=== PATIENT | male | born 1995 | race Caucasian/White ===

== ENCOUNTER 2016-06-05 13:24 | Emergency (ER) | payer OTHER ==
[~2016-06-05] VITALS: Ht 180.3 cm; Wt 63.5 kg
--- NOTE | 2016-06-05 15:07 | ED GENERAL ADULT ---
History of Present Illness General Chief Complaint: General Adult Stated Complaint: "FLU LIKE SYMPTOMS" X 3 DAYS Source: patient, family Exam Limitations: no limitations Vital Signs & Intake/Output Vital Signs & Intake/Output Vital Signs Date Time Temp Pulse Resp B/P Pulse O2 O2 Flow FiO2 Ox Delivery Rate 06/05 194 100.6 80 16 133/60 98 Room Air 06/05 1756 100.5 90 18 124/59 99 Room Air 06/05 1550 Room Air Room Air 06/05 1408 100.6 101 18 115/73 97 Room Air Allergies Coded Allergies: No Known Allergies (06/05/16) Reconcile Medications Cefdinir 300 MG CAPSULE 1 CAP PO BID ear infection (Reported) Ketorolac Tromethamine 10 MG TABLET 1 TAB PO TID PRN pain received IV toradol in the ED Ondansetron (Zofran Odt) 4 MG TAB.RAPDIS 1 TAB SL TID PRN nausea Triage Note: RECEIVED 20 YO MALE C/O "FLU LIKE SYMPTOMS X 3 DAYS". PT REPORTS FEVER, CHILLS, BODY ACHES AND PAIN, MILD RIGHT LOWER QUADRENT ABDOMINAL PAIN X ONE DAY. Triage Nurses Notes Reviewed? yes HPI: Patient is a 20-year-old male presents complaining of flulike symptoms 3 days and right lower abdominal pain times one day. Cough, fevers, myalgias onset 3 days ago. Temperature up to 101F. Patient has been taking ibuprofen with mild improvement. Right lower quadrant aching pain 1 day. Decreased appetite. Symptoms are currently moderate. Positive sick contacts. Last bowel movement was this afternoon prior to arrival. Patient denies vomiting, urinary symptoms. Patient is currently on Augmentin for right otitis media that was diagnosed approximately one week ago. (DARRICK GLEASON) Past History Travel History Traveled to [place] past 21 day No Medical History Any Pertinent Medical History? none Neurological: NONE EENT: NONE Cardiovascular: NONE Respiratory: NONE Gastrointestinal: NONE Hepatic: NONE Renal: NONE Musculoskeletal: NONE Psychiatric: NONE Endocrine: NONE Blood Disorders: NONE Cancer(s): NONE Surgical History Surgical History: non-contributory Psychosocial History What is your primary language French Tobacco Use: Current Daily Use Daily Tobacco Use Amount/Type: => 5 Cigarettes daily Illicit Drug Use: denies illicit drug use Family History Hx Contributory? No (DARRICK GLEASON) Review of Systems Review of Systems Constitutional: Reports: chills, fever, malaise. EENTM: Reports: nasal congestion. Respiratory: Reports: cough. Denies: short of breath. Cardiovascular: Denies: chest pain. GI: Reports: see HPI. Genitourinary: Reports: no symptoms. Musculoskeletal: Reports: no symptoms. Skin: Reports: no symptoms. Neurological/Psychological: Reports: headache. Hematologic/Endocrine: Reports: no symptoms. Immunologic/Allergic: Reports: no symptoms. (DARRICK GLEASON) Physical Exam Physical Exam General Appearance: well developed/nourished, alert, awake Head: atraumatic, normal appearance Eyes: Bilateral: normal appearance, PERRL, EOMI. Ears, Nose, Throat: normal pharynx, hearing grossly normal, moderate cerumen right external auditory canal. Normal tympanic membranes bilaterally. No pharyngeal erythema. Neck: normal inspection, supple, full range of motion Respiratory: normal breath sounds, chest non-tender, no respiratory distress, lungs clear Cardiovascular: regular rate/rhythm Gastrointestinal: normal bowel sounds, soft, right lower quadrant tenderness over the area of McBurney's point. Negative psoas or obturator sign. Back: normal inspection, normal range of motion, no vertebral tenderness, no CVA tenderness Extremities: normal inspection, normal capillary refill, normal range of motion, no edema Neurologic/Psych: no motor/sensory deficits, awake, alert, oriented x 3, normal gait, normal mood/affect Skin: intact, normal color, warm/dry Lymphatic: no anterior cervical choco Core Measures ACS in differential dx? No CVA/TIA Diagnosis: No Severe Sepsis Present: No Septic Shock Present: No (DARRICK GLEASON) Progress Differential Diagnoses I considered the following diagnoses in my evaluation of the patient: Gastroenteritis, influenza, infectious mononucleosis, appendicitis, inflammatory bowel disease Plan of Care: Orders Procedure Date/time Status Add-on Test (ER Only) 06/05 1826 Active MONOSPOT TEST 06/05 1540 Complete RAPID VIRAL INFLUENZA A 06/05 1507 Complete URINALYSIS 06/05 1507 Complete COMPREHENSIVE METABOLIC PANEL 06/05 1507 Complete CBC WITHOUT DIFFERENTIAL 06/05 1507 Complete Laboratory Tests 06/05/16 1816: Urine Color YEL, Urine Clarity CLEAR, Urine pH 6.5, Ur Specific [place] <= 1.005 , Urine Protein NEG, Urine Ketones NEG, Urine Nitrite NEG, Urine Bilirubin NEG, Urine Urobilinogen 0.2, Ur Leukocyte Esterase NEG, Ur Microscopic SEDIMENT EXAMINED, Urine RBC RARE, Ur Epithelial Cells RARE, Urine Hemoglobin TRACE- INTACT H, Urine Glucose NEG 06/05/16 1540: Anion Gap 11, Estimated GFR > 60, BUN/Creatinine Ratio 17.8, Glucose 103 H, Calcium 8.7, Total Bilirubin 0.5, AST 13 L, ALT 25, Alkaline Phosphatase 65, Total Protein 6.8, Albumin 3.9, Globulin 2.9, Albumin/Globulin Ratio 1.3, CBC w Diff NO MAN DIFF REQ, RBC 4.51 L, MCV 87.5, MCH 29.1, RDW 12.6, MPV 7.4, Gran % 83.6 H, Lymphocytes % 8.5 L, Monocytes % 6.8, Eosinophils % 0.8, Basophils % 0.3, Absolute Granulocytes 5.6, Absolute Lymphocytes 0.6 L, Absolute Monocytes 0.5, Absolute Eosinophils 0.1, Absolute Basophils 0, PUBS MCHC 33.3, Infectious [place] Titer NEGATIVE Microbiology 06/05 1532 NASOPHARYN: Influenza Virus A & B Rapid Smear - COMP 06/05/2016 5:00:25 PM: Patient reports eye itching and redness after receiving the IV contrast. Mild erythema and swelling left side of the nose. No tongue swelling, throat swelling, dyspnea, wheezing. Benadryl ordered. 06/05/2016 6:10:03 PM: results discussed with patient. Patient reports abdominal pain is mild currently. Awaiting call back from Dr. Javier. 06/05/2016 6:27:06 PM: Discussed with Dr. Javier: will review Patient evaluated by Dr. Javier: see consultation note. (ELOISA SUTHERLAND,DARRICK) Diagnostic Imaging: Viewed by Me: CT Scan. Discussed w/RAD: CT Scan. Radiology Impression: PATIENT: LOLA XIAO PRESENT AGE: 20 PATIENT ACCOUNT NO: [id number] : 95 LOCATION: [facility] ORDERING PHYSICIAN: DARRICK SUTHERLAND SERVICE DATE: 06/05/16-1186 EXAM TYPE: CAT - CT ABD & PELVIS W IV CONTRAST EXAMINATION: CT ABDOMEN AND PELVIS WITH CONTRAST CLINICAL INFORMATION: Right lower quadrant pain and tenderness, fever COMPARISON : None TECHNIQUE: Multidetector volumetric imaging was performed of the abdomen and pelvis before and after the IV administration of 94 mL of Optiray 320 intravenous contrast. Sagittal and coronal reformatted images were obtained on the technologist's workstation. DLP: 277.2 mGy-cm FINDINGS: LUNG BASES: The visualized lung bases are unremarkable. LIVER, GALLBLADDER, AND BILIARY TREE: The liver is normal in size, shape, and attenuation. No focal hepatic lesion or biliary ductal dilatation is present. The gallbladder is unremarkable with no evidence of radiopaque gallstones, gallbladder wall thickening, or obvious pericholecystic inflammatory changes. PANCREAS: Unremarkable. SPLEEN: The spleen is top normal in size measuring up to 12.8 cm. ADRENAL GLANDS: Unremarkable. KIDNEYS AND URETERS: The kidneys are normal in size, shape, and attenuation. No hydronephrosis, hydroureter, or calculi seen. No perinephric stranding. BLADDER: Unremarkable. GASTROINTESTINAL TRACT: The appendix is fluid-filled with mild hyperenhancement of the wall. The overall caliber is within normal range measuring 0.5-0.6 cm (image 38, series 602). There is free fluid within the pelvis. There are multiple loops of fluid-filled small bowel within the pelvis and mid to lower abdomen. Most of the free fluid surrounds the proximal sigmoid colon. There is abnormal enhancement of the wall of the proximal sigmoid colon. There is marked narrowing of the caliber of the sigmoid colon at one point within the mid deep pelvis (image 68, series 602). Immediately proximal to this point there is significant fecal dilatation of stool. There is no dilatation of the colon proximal to this point. ABDOMINAL WALL: No significant hernia is appreciated. LYMPH NODES: Normal. VASCULAR: Unremarkable. PELVIC VISCERA: Prostate and seminal vesicles are unremarkable. OSSEOUS STRUCTURES: Unremarkable. IMPRESSION: 1. Abnormal free fluid deep within the pelvis. Abnormal loop of proximal sigmoid colon which is markedly narrowed and may represent a single transition point. The bowel wall at this level demonstrates hyperenhancement. No high-grade obstruction demonstrated. Surgical consultation is recommended. 2. Equivocal appendix. The appendix is fluid-filled and demonstrates mild hyperenhancement on the current study but is not significantly dilated. 3. Borderline spleen. DICTATED BY: ROMMEL LOUISE MD DATE/TIME DICTATED: 06/05/161735 REHABILITATION PHYSICIAN:LAURA DATE/TIME TRANSCRIBED:04/09/17 / 1736 CONFIDENTIAL, DO NOT COPY WITHOUT APPROPRIATE AUTHORIZATION. <Electronically signed in Other Vendor System> SIGNED BY: ROMMEL LOUISE MD 06/05/16 1754 Initial ED EKG: none (DARRICK GLEASON) Departure Departure Time of Disposition: 1922 Disposition: HOME OR SELF CARE Condition: Stable Clinical Impression Primary Impression: Viral syndrome Referrals: MIRNA RIZVI,ANICETO Buenrostro (PCP/Family) Additional Instructions: Follow up with your primary doctor this week for further evaluation. Call in the morning for appointment. Return to the ER if unable to stay hydrated, pain increasing in the right lower abdomen or worsening of symptoms. Departure Forms: Customer Survey General Discharge Information Prescriptions: Current Visit Scripts Ketorolac Tromethamine 1 TAB PO TID PRN pain #12 TAB received IV toradol in the ED Ondansetron (Zofran Odt) 1 TAB SL TID PRN nausea #10 TAB (DARRICK GLEASON) PA/COOKIE BREAKER Co-Sign Statement Statement: ED Attending supervision documentation- [] I saw and evaluated the patient. I have also reviewed all the pertinent lab results and diagnostic results. I agree with the findings and the plan of care as documented in the PA's/COOKIE BREAKER's documentation. [x] I have reviewed the ED Record and agree with the PA's/COOKIE BREAKER's documentation. [] Additions or exceptions (if any) to the PAs/COOKIE BREAKER's note and plan are summarized below: [] (RAI RIZVI,MILDRED Espinosa) Critical Care Note Critical Care Note Critical Care Time: non-applicable (DARRICK GLEASON)
[2016-06-05 15:50] LABS: ABSOLUTE BASOPHIL COUNT 0 /CUMM (0.0-0.2); ABSOLUTE EOSINOPHIL COUNT 0.1 /CUMM (0.0-0.7); ABSOLUTE GRANULOCYTE CT 5.6 /CUMM (1.4-6.5); ABSOLUTE LYMPH COUNT 0.6 /CUMM (1.2-3.4); ABSOLUTE MONOCYTE COUNT 0.5 /CUMM (0.10-0.60); BASOPHIL % 0.3 % (0.0-2.0); EOSINOPHIL % 0.8 % (0-5); GRANULOCYTE % 83.6 % (42.2-75.2); HEMATOCRIT 39.5 % (42-52); MEAN CORPUSCULAR HGB 29.1 PG (27.0-31.0); MEAN CORPUSCULAR HGB CONC 33.3 G/DL (33.0-37.0); MEAN CORPUSCULAR VOLUME 87.5 FL (80.0-94.0); MEAN PLATELET VOLUME 7.4 FL (7.4-10.4); PLATELET COUNT 220 /CUMM (130-400); RBC DISTRIBUTION WIDTH 12.6 % (11.5-14.5); RED BLOOD CELL CT 4.51 /CUMM (4.70-6.10)
[2016-06-05] MEDS ORDERED: CEFDINIR300 M1 PO (15:50)
[2016-06-05 16:19] LABS: WHITE BLOOD CELL COUNT 6.7 /CUMM (4.8-10.8)
--- NOTE | 2016-06-05 17:52 | CT SCAN REPORT ---
EXAMINATION: CT ABDOMEN AND PELVIS WITH CONTRAST CLINICAL INFORMATION: Right lower quadrant pain and tenderness, fever COMPARISON: None TECHNIQUE: Multidetector volumetric imaging was performed of the abdomen and pelvis before and after the IV administration of 94 mL of Optiray 320 intravenous contrast. Sagittal and coronal reformatted images were obtained on the technologist's workstation. DLP: 277.2 mGy-cm FINDINGS: LUNG BASES: The visualized lung bases are unremarkable. LIVER, GALLBLADDER, AND BILIARY TREE: The liver is normal in size, shape, and attenuation. No focal hepatic lesion or biliary ductal dilatation is present. The gallbladder is unremarkable with no evidence of radiopaque gallstones, gallbladder wall thickening, or obvious pericholecystic inflammatory changes. PANCREAS: Unremarkable. SPLEEN: The spleen is top normal in size measuring up to 12.8 cm. ADRENAL GLANDS: Unremarkable. KIDNEYS AND URETERS: The kidneys are normal in size, shape, and attenuation. No hydronephrosis, hydroureter, or calculi seen. No perinephric stranding. BLADDER: Unremarkable. GASTROINTESTINAL TRACT: The appendix is fluid-filled with mild hyperenhancement of the wall. The overall caliber is within normal range measuring 0.5-0.6 cm (image 38, series 602). There is free fluid within the pelvis. There are multiple loops of fluid-filled small bowel within the pelvis and mid to lower abdomen. Most of the free fluid surrounds the proximal sigmoid colon. There is abnormal enhancement of the wall of the proximal sigmoid colon. There is marked narrowing of the caliber of the sigmoid colon at one point within the mid deep pelvis (image 68, series 602). Immediately proximal to this point there is significant fecal dilatation of stool. There is no dilatation of the colon proximal to this point. ABDOMINAL WALL: No significant hernia is appreciated. LYMPH NODES: Normal. VASCULAR: Unremarkable. PELVIC VISCERA: Prostate and seminal vesicles are unremarkable. OSSEOUS STRUCTURES: Unremarkable. IMPRESSION: 1. Abnormal free fluid deep within the pelvis. Abnormal loop of proximal sigmoid colon which is markedly narrowed and may represent a single transition point. The bowel wall at this level demonstrates hyperenhancement. No high-grade obstruction demonstrated. Surgical consultation is recommended. 2. Equivocal appendix. The appendix is fluid-filled and demonstrates mild hyperenhancement on the current study but is not significantly dilated. 3. Borderline spleen.
[2016-06-05] MEDS ORDERED: ZOFRAN ODT4 M1 SL (19:31)
[2016-06-05] MEDS ORDERED: KETOROLAC TROME10 M1 PO (19:31)
--- NOTE | 2016-06-05 19:33 | Cons- General Surgery ---
General Information and HPI Consulting Request Date of Consult: 06/05/16 Requested By: KOKO dong Reason for Consult: abdominal pain History of Present Illness: Patient is a 20-year-old male who presents to the emergency room for evaluation of abdominal pain. He has had body aches, headaches, chills and sweats for the past 3 days. There is anorexia without vomiting. There is diarrhea. He noted right lower quadrant abdominal pain today and came to the emergency room for evaluation. He states he had fevers at home up to 101 Fahrenheit. No similar episodes of pain. He does state that his girlfriend currently is recovering from the flu. Allergies/Medications Allergies: Coded Allergies: No Known Allergies (06/05/16) Home Med List: Cefdinir 300 MG CAPSULE 1 CAP PO BID ear infection (Reported) Ketorolac Tromethamine 10 MG TABLET 1 TAB PO TID PRN pain received IV toradol in the ED Ondansetron (Zofran Odt) 4 MG TAB.RAPDIS 1 TAB SL TID PRN nausea Current Medications: Current Medications Sig/Jessi Start time Last Medication Dose Route Stop Time Status Admin Diphenhydramine HCl 0 .STK-MED ONE 06/05 1710 DC .ROUTE Diphenhydramine HCl 50 MG ONCE ONE 06/05 1700 DC / IV 06/05 1701 1709 Ketorolac 0 .STK-MED ONE 06/05 1547 DC Tromethamine .ROUTE Ketorolac 30 MG ONCE ONE 06/05 1515 DC / Tromethamine IV 06/05 1516 1554 Sodium Chloride 1,000 ML BOLUS ONE 06/05 1515 DC / IV 06/05 1614 1554 Past History Medical History Neurological: NONE EENT: NONE Cardiovascular: NONE Respiratory: NONE Gastrointestinal: NONE Hepatic: NONE Renal: NONE Musculoskeletal: NONE Psychiatric: NONE Endocrine: NONE Blood Disorders: NONE Cancer(s): NONE Surgical History Pertinent Surgical History: none Psychosocial History Illicit Drug Use: denies illicit drug use Review of Systems Review of Systems: No chest pain, no dyspnea on exertion. Abdominal pain per HPI. No dysuria. Bodyaches chills and headaches per HPI. Remainder 12 points negative Exam & Diagnostic Data Vital Signs and I&O Vital Signs Date Time Temp Pulse Resp B/P Pulse O2 O2 Flow FiO2 Ox Delivery Rate 04/09 1756 100.5 90 18 124/59 99 Room Air 06/05 1550 Room Air Room Air 06/05 1408 100.6 101 18 115/73 97 Room Air Intake & Output 06/05 1600 06/05 0806/05 0000 06/04 1600 06/04 0800 06/04 0000 Intake Total 1000 Output Total Balance 1000 Intake, IV 1000 Patient 140 lb Weight Physical Exam: Gen.: He looks well's of thin body habitus. No distress. He is moving around on the gurney without difficulty. HEENT: Anicteric PERRL EOMI Neck: Supple no adenopathy no thyromegaly no jugular venous distention Chest: Nontender normal respiratory excursion normal respiratory effort. Abdomen: Flat soft and tender right lower quadrant. Negative Rovsing sign. No involuntary guarding. No hernias no mass. Tender in suprapubic region Extremities: No cyanosis clubbing or edema Last 24 Hours of Labs: Laboratory Tests 06/05 06/05 1816 1540 Chemistry Sodium (137 - 145 mmol/L) 138 Potassium (3.5 - 5.1 mmol/L) 4.8 Chloride (98 - 107 mmol/L) 99 Carbon Dioxide (22 - 30 mmol/L) 28 Anion Gap (5 - 16) 11 BUN (9 - 20 mg/dL) 16 Creatinine (0.7 - 1.2 mg/dL) 0.9 Estimated GFR (>60 ml/min) > 60 BUN/Creatinine Ratio (7 - 25 %) 17.8 Glucose (65 - 99 mg/dL) 103 H Calcium (8.4 - 10.2 mg/dL) 8.7 Total Bilirubin (0.2 - 1.3 mg/dL) 0.5 AST (17 - 59 U/L) 13 L ALT (21 - 72 U/L) 25 Alkaline Phosphatase (< 127 U/L) 65 Total Protein (6.3 - 8.2 g/dL) 6.8 Albumin (3.5 - 5.0 g/dL) 3.9 Globulin (1.9 - 4.2 gm/dL) 2.9 Albumin/Globulin Ratio (1.1 - 2.2 %) 1.3 Hematology CBC w Diff NO MAN DIFF REQ WBC (4.8 - 10.8 /CUMM) 6.7 RBC (4.70 - 6.10 /CUMM) 4.51 L Hgb (14.0 - 18.0 G/DL) 13.1 L Hct (42 - 52 %) 39.5 L MCV (80.0 - 94.0 FL) 87.5 MCH (27.0 - 31.0 PG) 29.1 RDW (11.5 - 14.5 %) 12.6 Plt Count (130 - 400 /CUMM) 220 MPV (7.4 - 10.4 FL) 7.4 Gran % (42.2 - 75.2 %) 83.6 H Lymphocytes % (20.5 - 51.1 %) 8.5 L Monocytes % (1.7 - 9.3 %) 6.8 Eosinophils % (0 - 5 %) 0.8 Basophils % (0.0 - 2.0 %) 0.3 Absolute Granulocytes (1.4 - 6.5 /CUMM) 5.6 Absolute Lymphocytes (1.2 - 3.4 /CUMM) 0.6 L Absolute Monocytes (0.10 - 0.60 /CUMM) 0.5 Absolute Eosinophils (0.0 - 0.7 /CUMM) 0.1 Absolute Basophils (0.0 - 0.2 /CUMM) 0 PUBS MCHC (33.0 - 37.0 G/DL) 33.3 Serology Infectious [place] Titer (NEGATIVE) NEGATIVE Urines Urine Color (YEL,AMB,STR) YEL Urine Clarity (CLEAR) CLEAR Urine pH (5.0 - 8.0) 6.5 Ur Specific [place] (1.001 - 1.035) <= 1.005 Urine Protein (NEG,<30 MG/DL) NEG Urine Ketones (NEG) NEG Urine Nitrite (NEG) NEG Urine Bilirubin (NEG) NEG Urine Urobilinogen (0.1 - 1.0 EU/dl) 0.2 Ur Leukocyte Esterase (NEG) NEG Ur Microscopic SEDIMENT EXAMINED Urine RBC (0 - 5 /HPF) RARE Ur Epithelial Cells (NONE,FEW) RARE Urine Hemoglobin (NEG) TRACE-INTACT H Urine Glucose (N MG/DL) NEG Imaging Results: CT scan of the abdomen pelvis images were personally reviewed. Findings showed mild mucosal enhancement of the sigmoid colon without inflammatory changes. There is a normal sized appendix in the right lower quadrant without inflammatory changes. It is fluid-filled. There is trace free fluid in the pelvis Assessment/Plan Assessment/Plan Overall impression is that this patient's abdominal pain is not due to appendicitis. He has a normal appendix on CT scan and a normal white blood cell count to substantiate the findings. Although he has right lower quadrant abdominal pain, this is associated with a constellation of symptoms more in keeping with a viral gastroenteritis and/or flu. I do not feel that emergent appendectomy is warranted. Recommend observation which can be performed at home. He is instructed to return to the emergency room should his right lower quadrant abdominal pain worsen. Copies To: MIRNA RIZVI,ANICETO Buenrostro Consult Acknowledgment - Thank you for your consult request.
[2016-06-05 19:41] VITALS: BP 133/60
== END 2016-06-05 19:42 ==
LOC: ERH 13:24
PROVIDERS: Physician Assistant
DX: B34.9 Viral infection, unspecified (principal); R05 Cough; R50.9 Fever, unspecified
CPT/HCPCS: 74177; 81001; 87804; 87804-59; 96374; 96375; J1200; J1885

== ENCOUNTER 2016-08-16 17:42 | Emergency (ER) | payer OTHER ==
[~2016-08-16] VITALS: Ht 182.9 cm; Wt 63.5 kg
[~2016-08-16 17:42] MED LIST: CEFDINIR300 M1 PO; KETOROLAC TROME10 M1 PO; ZOFRAN ODT4 M1 SL
[2016-08-16 17:47] VITALS: BP 113/72
--- NOTE | 2016-08-16 18:35 | RADIOLOGY REPORT ---
EXAMINATION: XR FOOT, RIGHT CLINICAL INFORMATION: Pain and swelling. Trauma. COMPARISON: None TECHNIQUE: AP, lateral, and oblique views of the right foot. FINDINGS: The bones and soft tissues are normal. No fracture. Alignment is anatomic. Joint spaces are maintained. IMPRESSION: Normal right foot.
--- NOTE | 2016-08-16 18:44 | ED ANKLE/FOOT INJURY COMPLAINT ---
History of Present Illness General Chief Complaint: Foot or Ankle Injury Stated Complaint: PTRT FOOT IS HAVING PAIN AND HARD TO WALK ON Source: patient Exam Limitations: no limitations Vital Signs & Intake/Output Vital Signs & Intake/Output Vital Signs Date Time Temp Pulse Resp B/P B/P Pulse O2 O2 Flow FiO2 Mean Ox Delivery Rate 08/16 1747 97.2 108 16 113/72 97 Room Air Triage Note: PT STATES ON MONDAY HE WAS ON HIS BED AND HIS RIGHT FOOT FELL ASLEEP WHEN HE WENT TO STAND HIS FOOT TWISTED AND HE IS HAVING TROUBLE AMBULATING ON IT SINCE. Triage Nurses Notes Reviewed? yes Occurred: just prior to arrival Duration: day(s): (few), constant, continues in ED Timing: recent history Severity: moderate, severe Pain/Injury Location: Right: Foot. Method of Injury: unknown No Modifying Factors: none HPI: 21-year-old male comes into emergency room for further evaluation of right foot pain. Patient reports that the other night his foot fell asleep. He got up and his foot twisted inward. He is been having pain since then. Some swelling. Sharp. Continuous. Nonradiating. Denies any other associated symptoms or trauma. (ROSALIND LOZADA) Allergies Coded Allergies: Iodinated Contrast- Oral and IV Dye (EYES SWELL 08/16/16) Reconcile Medications No Known Home Medications (LANE RIZVI,VAIBHAV) Past History Travel History Traveled to [place] past 21 day No Medical History Any Pertinent Medical History? see below for history Neurological: NONE EENT: NONE Cardiovascular: NONE Respiratory: NONE Gastrointestinal: NONE Hepatic: NONE Renal: NONE Musculoskeletal: NONE Psychiatric: NONE Endocrine: NONE Blood Disorders: NONE Cancer(s): NONE Surgical History Surgical History: N Psychosocial History What is your primary language Bruneian Tobacco Use: Current Daily Use Daily Tobacco Use Amount/Type: => 5 Cigarettes daily ETOH Use: occasional use Illicit Drug Use: denies illicit drug use Family History Hx Contributory? No (ROSALIND LOZADA) Review of Systems Review of Systems Constitutional: Reports: no symptoms. EENTM: Reports: no symptoms. Respiratory: Reports: no symptoms. Cardiovascular: Reports: no symptoms. GI: Reports: no symptoms. Genitourinary: Reports: no symptoms. Musculoskeletal: Reports: see HPI. Skin: Reports: no symptoms. Neurological/Psychological: Reports: no symptoms. Hematologic/Endocrine: Reports: no symptoms. Immunologic/Allergic: Reports: no symptoms. All Other Systems: Reviewed and Negative (ROSALIND LOZADA) Physical Exam Physical Exam General Appearance: well developed/nourished, mild distress Head: atraumatic Eyes: Bilateral: normal appearance. Ears, Nose, Throat: normal ENT inspection, hearing grossly normal Neck: normal inspection Cardiovascular/Respiratory: no respiratory distress Back: normal inspection Leg/Knee/Thigh Left: normal inspection Leg/Knee/Thigh Right: normal inspection Foot Right: ecchymosis, soft tissue tenderness, swelling Neuro/Vascular: normal motor function, normal sensation Tendon: normal tendon function Psychiatric: awake, alert, oriented x 3 Skin: intact, normal color, warm/dry (ROSALIND LZOADA) Progress Differential Diagnosis: septic arthritis, gout, fracture, dislocation, sprain, contusion Plan of Care: Orders Procedure Date/time Status Durable Medical Equipment 08/16 185 Active Diagnostic Imaging: Viewed by Me: Radiology Read. Discussed w/RAD: Radiology Read. Radiology Impression: SERVICE DATE: 08/16/16 EXAM TYPE: RAD - XRY-FOOT COMPLETE, R EXAMINATION: XR FOOT, RIGHT CLINICAL INFORMATION: Pain and swelling. Trauma. COMPARISON: None TECHNIQUE: AP, lateral, and oblique views of the right foot. FINDINGS: The bones and soft tissues are normal. No fracture. Alignment is anatomic. Joint spaces are maintained. IMPRESSION: Normal right foot. (ROSALIND LOZADA) Departure Departure Disposition: HOME OR SELF CARE Condition: Stable Clinical Impression Primary Impression: Right foot sprain Referrals: CLAUDIA ZENDEJAS,PEBBLES BRADLEY MD,ANICETO Buenrostro (PCP/Family) Additional Instructions: Take ibuprofen for pain. Ice. rest. f/u with human resource assistant if not better in 3-5 days. return if any concerns/worsening of symptoms. Departure Forms: Customer Survey General Discharge Information (ROSALIND LOZADA) Departure Prescriptions: Current Visit Scripts No Known Home Medications PA/RECONCILIATION SPECIALIST Co-Sign Statement Statement: ED Attending supervision documentation- [] I saw and evaluated the patient. I have also reviewed all the pertinent lab results and diagnostic results. I agree with the findings and the plan of care as documented in the PA's/RECONCILIATION SPECIALIST's documentation. [X] I have reviewed the ED Record and agree with the PA's/RECONCILIATION SPECIALIST's documentation. [] Additions or exceptions (if any) to the PAs/RECONCILIATION SPECIALIST's note and plan are summarized below: [] (LANE RIZVI,VAIBHAV)
== END 2016-08-16 19:18 ==
LOC: ERH 17:42
DX: S93.601A Unspecified sprain of right foot, initial encounter (principal); X50.9XXA Other and unspecified overexertion or strenuous movements or postures, initial encounter; Y93.89 Activity, other specified; Y92.9 Unspecified place or not applicable
CPT/HCPCS: 73630-RT